=== PATIENT | male | born 1960 | race Caucasian/White ===

== ENCOUNTER → 2018-10-09 | Outpatient (CLI) | payer BC ==
--- NOTE | 2018-10-09 09:16 | US ---
EXAMINATION TYPE: US kidneys/renal and bladder DATE OF EXAM: 10/09/2018 COMPARISON: NONE CLINICAL HISTORY: 58-year-old male N18.9 chronic kidney disease. TECHNIQUE: Multiple sonographic images of the kidneys and bladder are obtained. FINDINGS: EXAM MEASUREMENTS: Right Kidney: 11.0 x 5.6 x 5.4 cm Left Kidney: 12.5 x 5.5 x 5.3 cm Post Void Residual Volume: 6.1 mL No hydronephrosis on either side. Right Kidney: Mid pole cyst = 1.0 x 0.9 x 0.9 cm Left Kidney: Upper pole cyst = 3.2 x 2.4 x 3.1 cm, Lower pole cyst = 1.4 x 1.3 x 1.1 cm, Lower pole c yst = 1.4 x 1.3 x 1.0 cm Bladder: Very mild circumferential wall thickening (0.5 cm) Bilateral Jets seen: Yes Normal Post Void Residual: Yes IMPRESSION: 1. No hydronephrosis. Scattered benign renal cysts measuring up to 3.2 cm. 2. Very mild circumferential bladder wall thickening could represent chronic bladder wall hypertrophy or cystitis.
== END | disposition home or self-care (01) ==
LOC: RADUSWWP 06:56
PROVIDERS: ATTEND Internal Medicine Geriatric Medicine
DX: N28.1 Cyst of kidney, acquired (principal)
CPT/HCPCS: 76770

== ENCOUNTER → 2020-10-21 | Outpatient (CLI) | payer BC ==
--- NOTE | 2020-10-21 13:04 | US ---
EXAMINATION TYPE: US kidneys/renal and bladder DATE OF EXAM: 10/21/2020 COMPARISON: 09/29/2018 CLINICAL HISTORY: R94.4 Abnormal results of kidney function studies. abnormal labs EXAM MEASUREMENTS: Right Kidney: 11.2 x 5.1 x 5.0 cm Left Kidney: 11.2 x 4.5 x 5.7 cm Right Kidney: Mid pole cystic lesion = 1.0 x 0.8 x 0.8 cm Left Kidney: Largest mid lateral cystic lesion= 3.5 x 2.7 x 3.3 cm. Largest lower pole cystic lesio n = 1.1 x 1.0 x 1.0 cm Bladder: distended, anechoic. Some diffuse wall thickening is not excluded. Bilateral Jets seen COMPARISON: Findings are similar to the prior study. IMPRESSION: 1. Bilateral simple appearing renal cysts. 2. There may be diffuse wall thickening through the urinary bladder.
== END | disposition home or self-care (01) ==
LOC: RADUSWWP 12:09
PROVIDERS: ATTEND Internal Medicine Geriatric Medicine
DX: N28.1 Cyst of kidney, acquired (principal)
CPT/HCPCS: 76770

== ENCOUNTER 2021-12-15 09:30 | Day surgery (SDC) | payer BC ==
[~2021-12-15 09:30] MED LIST: LACTATED RINGERS 1,000 ML IV SCH; LIDOCAINE 1% (10MG/ML) FOR IV START INTRADERMA PRN
[2021-12-15 09:57] VITALS: TEMP 97.6
[2021-12-15] MEDS ORDERED: PROPOFOL 10 MG/ML 20 ML VIAL IV ONE (10:06)
--- NOTE | 2021-12-15 10:09 | P.GSHP ---
History of Present Illness H&P Date: 12/15/21 Chief Complaint: Colon cancer screening 61-year-old male here today for colonoscopy. His last colonoscopy 8 years ago. He had a small hyperplastic polyp at that time. No family history of colon cancer. No bowel complaints. Past Medical History Past Medical History: Hyperlipidemia Additional Past Medical History / Comment(s): + covid 09/2021, History of Any Multi-Drug Resistant Organisms: None Reported Additional Past Surgical History / Comment(s): colonoscopy 2015, severed tendon repair in rt pinky Past Anesthesia/Blood Transfusion Reactions: No Reported Reaction Smoking Status: Never smoker - Past Family History Mother Family Medical History: Coronary Artery Disease (CAD) Additional Family Medical History / Comment(s): smoker Father Family Medical History: Cancer, COPD Additional Family Medical History / Comment(s): prostate cancer, smoker. bilateral knee replacement Medications and Allergies Home Medications Medication Instructions Recorded Confirmed Type Rosuvastatin [Crestor] 5 mg PO DAILY 12/11/21 12/11/21 History Unk Multi Vitamin 1 tab PO DAILY 12/11/21 12/11/21 History Allergies Allergy/AdvReac Type Severity Reaction Status Date / Time Iodine and Iodide Containing Allergy Anaphylaxis Verified 12/15/21 09:53 Produc Surgical - Exam Vital Signs Temp Pulse Resp BP Pulse Ox 97.6 F 75 16 147/95 96 12/15/21 09:55 12/15/21 09:55 12/15/21 09:55 12/15/21 09:55 12/15/21 09:55 Physical exam: General: Well-developed, well-nourished HEENT: Normocephalic, sclerae nonicteric Abdomen: Nontender, nondistended Extremities: No edema Neuro: Alert and oriented Assessment and Plan (1) Colon cancer screening Narrative/Plan: Will proceed with colonoscopy at this time. Current Visit: Yes Status: Acute Code(s): Z12.11 - ENCOUNTER FOR SCREENING FOR MALIGNANT NEOPLASM OF COLON SNOMED Code(s): 155146597
--- NOTE | 2021-12-15 10:22 | P.PCN ---
Date of Procedure: 12/15/21 Procedure(s) Performed: PREOPERATIVE DIAGNOSIS: Colon cancer screening POSTOPERATIVE DIAGNOSIS: Normal exam PROCEDURE: Colonoscopy ANESTHESIA: MAC SURGEON: Goyo Servin M.D. SPECIMENS: None ENDOSCOPIC PROCEDURE: The patient was placed on the endoscopy table in the left decubitus position. The Olympus colonoscope was inserted into the anus and passed under direct visualization to the base of the cecum. The appendiceal orifice was visualized. From that point the scope was slowly withdrawn inspecti ng all surfaces carefully. There were no neoplastic inflammatory or polypoid lesions throughout the cecum, ascending, transverse, descending, sigmoid and rectum. There was no visible diverticulosis noted. Digital rectal examination was normal. The patient was taken to the recovery room in stable condition per anesthesia guidelines. RECOMMENDATIONS: Resume diet. Repeat colonoscopy 10 years.
[2021-12-15 10:40] VITALS: BP 136/90; PULSE 65; RESP 16
== END 2021-12-15 11:04 | disposition home or self-care (01) ==
LOC: ORWHC2ENDO 09:30
PROVIDERS: ATTEND Surgery
DX: Z12.11 Encounter for screening for malignant neoplasm of colon (principal); E78.5 Hyperlipidemia, unspecified; Z91.048 Other nonmedicinal substance allergy status; Z86.010 Personal history of colon polyps
CPT/HCPCS: 45378; J2704

== ENCOUNTER 2021-12-28 08:19 | Day surgery (SDC) | payer BC ==
[2021-12-23 11:45] VITALS: BMI 29.1
--- NOTE | 2021-12-28 07:39 | P.GSHP ---
History of Present Illness H&P Date: 12/28/21 Chief Complaint: Umbilical hernia 61-year-old male here today for elective repair umbilical hernia. Patient with recent colonoscopy which was normal. Complains of a bulge at the bellybutton and also the upper midline. Mild pain at times. Hernia enlarging over time. Past Medical History Past Medical History: Hyperlipidemia Additional Past Medical History / Comment(s): COVID 09/21/21, History of Any Multi-Drug Resistant Organisms: None Reported Additional Past Surgical History / Comment(s): colonoscopy 12/15/21, surgery for torn tendon rt little finger Past Anesthesia/Blood Transfusion Reactions: No Reported Reaction Smoking Status: Never smoker - Past Family History Mother Family Medical History: No Reported History Medications and Allergies Home Medications Medication Instructions Recorded Confirmed Type Rosuvastatin [Crestor] 5 mg PO DAILY 12/11/21 12/23/21 History Allergies Allergy/AdvReac Type Severity Reaction Status Date / Time Iodine and Iodide Containing Allergy Anaphylaxis Verified 12/23/21 11:28 Produc Surgical - Exam Physical exam: General: Well-developed, well-nourished HEENT: Normocephalic, sclerae nonicteric Abdomen: Nontender, nondistended, diastases recti present, reducible umbilical hernia Extremities: No edema Neuro: Alert and oriented Assessment and Plan (1) Umbilical hernia Narrative/Plan: 61-year-old male with umbilical hernia. We'll proceed with open repair with mesh at this time. Risks of bleeding, infection, recurrence, bladder and bowel injury, numbness, nerve injury were discussed with the patient. The patient understands and wishes to proceed. Status: Acute Code(s): K42.9 - UMBILICAL HERNIA WITHOUT OBSTRUCTION OR GANGRENE SNOMED Code(s): 582805916
[~2021-12-28 08:19] MED LIST changes: +ACETAMINOPHEN TAB 500 MG TAB PO PRN; +DEXAMETHASONE SOD PHOSPHATE 4 MG/ML 1 ML VIAL IV ONE; +HEPARIN SODIUM,PORCINE/PF 5,000 UNIT/0.5 ML SYRINGE SQ PRN; +HYDROmorphone 0.5 MG/0.5 ML SYRINGE IVP PRN; -LIDOCAINE 1% (10MG/ML) FOR IV START INTRADERMA PRN; +MIDAZOLAM 2 MG/2 ML VIAL IV PRN; +ONDANSETRON 4 MG/2 ML VIAL IVP ONE; +SCOPOLAMINE 1 MG/72 HR PATCH TRANSDERM ONE
[2021-12-28] MEDS ORDERED: NEOSTIGMINE 1 MG/ML 10 ML VIAL ONE (08:48)
[2021-12-28] MEDS ORDERED: PROPOFOL 10 MG/ML 20 ML VIAL IV ONE (08:48)
[2021-12-28] MEDS ORDERED: KETOROLAC 15 MG/ML 1 ML VIAL ONE (08:48)
[2021-12-28] MEDS ORDERED: MIDAZOLAM 2 MG/2 ML VIAL ONE (08:48)
[2021-12-28] MEDS ORDERED: fentaNYL (PF) 50 MCG/ML 2 ML AMP ONE (08:48)
[2021-12-28] MEDS ORDERED: ROCURONIUM 10 MG/ML (5 ML VIAL) IV ONE (08:48)
[2021-12-28] MEDS ORDERED: GLYCOPYRROLATE 0.2 MG/ML 2 ML VIAL ONE (08:48)
[2021-12-28] MEDS ORDERED: LIDOCAINE 2% INJ 20 MG/ML (2 ML VIAL) ONE (08:48)
[2021-12-28] MEDS ORDERED: BUPIVACAINE (PF) 0.25% 30 ML VIAL SQ ONE ×2 (09:06→09:25)
--- NOTE | 2021-12-28 09:45 | P.OP ---
Date of Procedure: 12/28/21 Procedure(s) Performed: PREOPERATIVE DIAGNOSIS: Umbilical hernia POSTOPERATIVE DIAGNOSIS: Same PROCEDURE: Open repair umbilical hernia with mesh SURGEON: Dr. Servin ANESTHESIA: General OPERATIVE PROCEDURE DETAILS: The patient was placed in the operating table in the supine position. A left sided periumbilical incision was made using the scalpel. The subcutaneous tissues were dissected bluntly and with cautery. The hernia sac was identified. The umbilical attachments to the fascia were divided using electrocautery. The hernia sac was reduced into the preperitoneal space. The defect in the fascia measured 2.5 x 1.5 cm The fat overlying the fascia was dissected. No additional defects were seen. The preperitoneal space was then dissected using blunt dissection and electrocautery. The 6.4 cm ventral ex mesh was placed beneath the fascia and sutured in place using trans-fascial 0 Ethibond sutures. The defect was closed using interrupted [id number] 0 Ethibond mattress sutures. The subcutaneous tissues were reapproximated using inverted 2-0 & 3-0 Vicryl sutures. The umbilicus was tacked back down to the fascia using a 2-0 Vicryl suture. The skin was closed using 4-0 Monocryl sutures. Skin glue and sterile dressings were then applied. TYPE OF MESH USED: Ventral ex LOCATION OF MESH: Sub-lay FIXATION: Trans-fascial 0 Ethibond PREOPERATIVE DISCUSSION ON SMOKING CESSASTION: Yes PREOPERATIVE DISCUSSION ON MORBID OBESITY: Yes PREOPERATIVE DISCUSSION ON APPROPRIATE USE OF NARCOTIC USE: Yes PREOPERATIVE EDUCATION: Multi Modal, Smoking Cessation and Weight Loss with BMI over 35. DISPOSITION: Stable to recovery room
[2021-12-28 09:57] VITALS: TEMP 97.2
[2021-12-28 11:12] VITALS: RESP 16
[2021-12-28 11:51] VITALS: BP 165/95; PULSE 62
[2021-12-28] MEDS ORDERED: ACETAMINOPHEN TAB 325 MG TAB PO SCH (12:00)
[2021-12-28] MEDS ORDERED: IBUPROFEN 600 MG TAB PO SCH (12:45)
== END 2021-12-28 12:12 | disposition home or self-care (01) ==
LOC: OR 08:19
PROVIDERS: ATTEND Surgery
DX: K42.9 Umbilical hernia without obstruction or gangrene (principal); E78.5 Hyperlipidemia, unspecified
CPT/HCPCS: 49585; C1781; J2250; J1100; J2710; J0690; J2405; J3010; J1885; J2704; J1644; J2001

== ENCOUNTER → 2022-02-04 | Outpatient (CLI) | payer BC ==
--- NOTE | 2022-02-04 10:30 | XR ---
EXAMINATION TYPE: XR chest 2V DATE OF EXAM: 02/04/2022 COMPARISON: NONE TECHNIQUE: PA and lateral views submitted. HISTORY: Cough FINDINGS: The lungs are clear and there is no pneumothorax, pleural effusion, or focal pneumonia. Heart size normal. No overt failure. IMPRESSION: 1. No acute process.
== END | disposition home or self-care (01) ==
LOC: RADXRMAIN 09:11
PROVIDERS: ATTEND Internal Medicine Geriatric Medicine
DX: R05.3 Chronic cough (principal)
CPT/HCPCS: 71046